=== PATIENT | female | born 2000 | race Caucasian/White ===

== ENCOUNTER 2020-02-06 12:47 | Outpatient (CLI) | payer OTHER, SELFPAY ==
--- NOTE | ~2020-02-06 | US_ITS ---
EXAMINATION: US OB <=14 wk fetus w TV DATE: 02/06/2020 13:31 INDICATION: First trimester viability assessment TECHNIQUE: Real-time pelvic transabdominal and transvaginal ultrasound was performed. COMPARISON: None. FINDINGS: The uterus measures 11.2 x 6.0 x 9.0 cm. There is an intrauterine gestational sac. A yolk sac is identified. heart motion is identified measuring 169 beats per minute (bpm) by M-mode Do ppler. The crown rump length measures 4.2 cm , which correlates with an estimated gestational a ge of 11 weeks and 1 day(s) (+/-) 7 day(s). The right ovary measures 3.3 x 2.1 x 2.6 cm. The left ovary measures 3.7 x 2.7 x 2.5 cm. There is nor mal vascular flow in the ovaries. There is no free fluid in the pelvis. IMPRESSION: 1. Live intrauterine with an estimated gestational age of 11 weeks and 1 day(s) (+/-) 7 day (s) and an estimated delivery date of 08/26/2020. Reviewed, dictated and finalized at location A. IMPRESSION: 1. Live intrauterine with an estimated gestational age of 11 weeks an d 1 day(s) (+/-) 7 day(s) and an estimated delivery date of 08/26/2020.
== END 2020-02-06 12:48 | disposition home or self-care (01) ==
PROVIDERS: Visit Provider Obstetrics & Gynecology
DX: Z34.90 Encounter for supervision of normal pregnancy, unspecified, unspecified trimester (principal); Z3A.11 11 weeks gestation of pregnancy
CPT/HCPCS: 76801; 76817

== ENCOUNTER 2020-02-20 15:43 | Outpatient (CLI) | payer OTHER, SELFPAY ==
[2020-02-20 16:19] LABS: Basophils Percent Auto 0.3 % (0.2-1.2); Eosinophils Absolute Auto 0.1 K/mm3 (0-0.3); Eosinophils Percent Auto 0.9 % (0-4.4); Hematocrit 35.1 % (37.0-47.0); Hemoglobin 11.8 g/dL (12.0-15.0); Immature Granulocyte Absolute 0.03 K/mm3 (0.00-0.031); Immature Granulocyte Percent A 0.3 % (0-0.5); Lymphocytes Percent Auto 18.1 % (18.3-44.2); Mean Corpuscular HGB Conc 33.6 g/dl (32-36); Mean Corpuscular Hemoglobin 30.2 pg (26-34); Mean Corpuscular Volume 89.8 fl (80-100); Mean Platelet Volume 10.6 fl (7.4-10.4); Monocytes Absolute Auto 0.4 K/mm3 (0.1-0.6); Monocytes Percent Auto 4.5 % (2.6-8.5); Neutrophils Absolute Auto 7.1 K/mm3 (1.3-6.7); Neutrophils Percent Auto 75.9 % (45.5-73.1); Platelet Count Result 292 k/mm3 (150-375); Red Blood Count 3.91 M/mm3 (4.2-5.4); Red Cell Distribution Width 13.1 % (11.5-14.5); White Blood Count 9.4 K/mm3 (4.5-10.0)
[2020-02-20 16:26] LABS: Add Urine Microscopic? YES; Appearance Urine Clear (Clear); Bacteria Urine Trace /hpf; Bilirubin Urine Negative (Negative); Blood Urine 1+ (Negative); Color Urine Yellow (Yellow); Glucose Urine UA Negative (Negative); Ketones Urine Negative (Negative); Leukocyte Esterase Ur 2+ LEU/UL (NEGATIVE); Mucus Urine Heavy /lpf; Nitrate Urine Negative (Negative); Protein Urine 1+ mg/dL (Negative); Specific Grav Ur 1.025 (1.001-1.035); Squamous Epithelial Cell Urine Many /hpf (Few); Urobilinogen Urine Negative mg/dL (<2.0)
[2020-02-20 17:25] LABS: Thyroid Stimulating Hormone 0.522 uIU/mL (0.465-4.680)
[2020-02-20 18:40] LABS: Hepatitis B Surface Antigen Negative (Negative); Rubella IgG Antibody 14.6 IU/ML
[2020-02-20 18:54] LABS: Hepatitis C Virus Antibody Negative (Negative)
[2020-02-23 08:58] LABS: Rapid Plasma Reagin Non-Reactive (NonReactive)
[2020-02-27 11:38] LABS: Hematocrit 36.5 % (35.0-45.0); MCH 30.2 pg (27.0-33.0); MCV 92.4 FL (80.0-100.0); RDW 14.2 % (11.0-15.0); Red Blood Cell Count 3.95 Mill/uL (3.80-5.10)
== END 2020-02-20 15:44 | disposition home or self-care (01) ==
PROVIDERS: Visit Provider Obstetrics & Gynecology
DX: Z34.00 Encounter for supervision of normal first pregnancy, unspecified trimester (principal)
CPT/HCPCS: 36415; 81001; 83021; 84443; 85025; 86592; 86762; 86787; 86803; 86850; 86900; 86901; 87086; 87088; 87340

== ENCOUNTER 2020-03-12 09:11 | Outpatient (CLI) | payer OTHER, SELFPAY ==
[2020-03-12 10:12] LABS: Vitamin D 25 Hydroxy 29.7 ng/mL
[2020-03-12 10:23] LABS: HIV 1/2 Ab P24 Ag Result Negative (Negative)
== END 2020-03-12 09:12 | disposition home or self-care (01) ==
LOC: ANHLAB 09:12
PROVIDERS: Visit Provider Obstetrics & Gynecology
DX: Z34.90 Encounter for supervision of normal pregnancy, unspecified, unspecified trimester (principal); Z3A.00 Weeks of gestation of pregnancy not specified
CPT/HCPCS: 36415; 82306; 86703; G0432

== ENCOUNTER → 2020-03-25 10:53 | Outpatient (CLI) | payer OTHER, SELFPAY ==
--- NOTE | ~2020-03-25 | US_ITS ---
EXAMINATION: US OB /maternal detail DATE: 03/25/2020 11:30 INDICATION: Second trimester anatomic survey TECHNIQUE: Real-time ultrasound of the pelvis was performed. COMPARISON: None. FINDINGS: There is a single living fetus in variable presentation. The placenta is anterior and 7.4 cm from the internal cervical os. heart rate is 137 beats per minute (bpm). cardiac activity and fe columba movement are noted. The amniotic fluid index is subjectively normal. The following anatomy was identified as normal: 4 chamber heart 3 vessel cord cord insertion kidneys urinary bladder stomach spine diaphragm ventricles cisterna magna cerebellum The following biometric data were obtained: Biparietal diameter (BPD): 4.1 cm; head circumference (HC): 15.4 cm; abdominal circumference (AC): 13 .0 cm; femur length (FL): 2.5 cm. These measurements are concordant. Estimated weight is 228 g +/- 34 g, which correlates with the 58th percentile when 08/26/2020 is used as estimated date of delivery. As single measurements, these parameters are each equal to the following estimated gestational ages w ith ranges of +/- 2 standard deviations: BPD: 18 weeks 4 days ( 16 weeks 6 days - 20 weeks 3 days). HC: 18 weeks 3 days ( 16 weeks 6 days - 19 weeks 6 days). AC: 18 weeks 4 days ( 16 weeks 4 days - 20 weeks 4 days). FL: 17 weeks 5 days ( 16 weeks 2 days - 19 weeks 1 days). estimated gestational age based solely on measurements from this exam is 18 weeks 2 days +/- 1 weeks 2 days. IMPRESSION: 1. Single living fetus in variable presentation. 2. Estimated weight is 228 g +/- 34 g, which correlates with the 58th percentile when 08/26/2020 is used as estimated date of delivery. Reviewed, dictated and finalized at location A. IMPRESSION: 1. Single living fetus in variable presentation. 2. Estimated weight is 228 g +/- 34 g, which correlates with the 58th per centile when 08/26/2020 is used as estimated date of delivery.
== END ==
PROVIDERS: Visit Provider Obstetrics & Gynecology
DX: Z36.9 Encounter for antenatal screening, unspecified (principal); Z3A.18 18 weeks gestation of pregnancy
CPT/HCPCS: 76805

== ENCOUNTER 2020-05-21 14:39 | Outpatient (CLI) | payer OTHER, SELFPAY ==
[2020-05-21 16:08] LABS: Basophils Percent Auto 0.3 % (0.2-1.2); Eosinophils Absolute Auto 0.1 K/mm3 (0-0.3); Eosinophils Percent Auto 0.7 % (0-4.4); Hematocrit 31.4 % (37.0-47.0); Hemoglobin 10.5 g/dL (12.0-15.0); Immature Granulocyte Absolute 0.12 K/mm3 (0.00-0.031); Lymphocytes Absolute Auto 1.71 K/mm3 (0.9-3.2); Lymphocytes Percent Auto 14.8 % (18.3-44.2); Mean Corpuscular HGB Conc 33.4 g/dl (32-36); Mean Corpuscular Hemoglobin 30.9 pg (26-34); Mean Corpuscular Volume 92.4 fl (80-100); Mean Platelet Volume 10.4 fl (7.4-10.4); Monocytes Absolute Auto 0.7 K/mm3 (0.1-0.6); Monocytes Percent Auto 6.3 % (2.6-8.5); Neutrophils Absolute Auto 8.9 K/mm3 (1.3-6.7); Neutrophils Percent Auto 76.9 % (45.5-73.1); Platelet Count Result 297 k/mm3 (150-375); Red Cell Distribution Width 13.4 % (11.5-14.5); White Blood Count 11.6 K/mm3 (4.5-10.0)
[2020-05-21 16:23] LABS: Glucose 1 Hour PP 50gm Dose 96 mg/dL
== END 2020-05-21 14:40 | disposition home or self-care (01) ==
PROVIDERS: Visit Provider Obstetrics & Gynecology
DX: Z34.92 Encounter for supervision of normal pregnancy, unspecified, second trimester (principal); Z3A.25 25 weeks gestation of pregnancy
CPT/HCPCS: 36415; 82947; 85025

== ENCOUNTER 2020-07-06 15:18 | Outpatient (CLI) | payer OTHER, SELFPAY ==
[2020-07-06 15:55] LABS: Basophils Percent Auto 0.3 % (0.2-1.2); Eosinophils Absolute Auto 0.1 K/mm3 (0-0.3); Eosinophils Percent Auto 0.7 % (0-4.4); Hematocrit 31.9 % (37.0-47.0); Hemoglobin 10.5 g/dL (12.0-15.0); Immature Granulocyte Percent A 1.8 % (0-0.5); Lymphocytes Absolute Auto 1.83 K/mm3 (0.9-3.2); Lymphocytes Percent Auto 16.9 % (18.3-44.2); Mean Corpuscular HGB Conc 32.9 g/dl (32-36); Mean Corpuscular Hemoglobin 30.6 pg (26-34); Mean Platelet Volume 10.7 fl (7.4-10.4); Monocytes Absolute Auto 0.8 K/mm3 (0.1-0.6); Monocytes Percent Auto 7.1 % (2.6-8.5); Neutrophils Absolute Auto 7.9 K/mm3 (1.3-6.7); Neutrophils Percent Auto 73.2 % (45.5-73.1); Platelet Count Result 292 k/mm3 (150-375); Red Blood Count 3.43 M/mm3 (4.2-5.4); Red Cell Distribution Width 13.9 % (11.5-14.5); White Blood Count 10.8 K/mm3 (4.5-10.0)
[2020-07-06 16:48] LABS: HIV 1/2 Ab P24 Ag Result Negative (Negative)
[2020-07-06 17:18] LABS: Vitamin D 25 Hydroxy 30.2 ng/mL
[2020-07-07 11:06] LABS: Rapid Plasma Reagin Non-Reactive (NonReactive)
== END 2020-07-06 15:19 | disposition home or self-care (01) ==
LOC: ANHLAB 15:20
PROVIDERS: Visit Provider Obstetrics & Gynecology
DX: Z34.90 Encounter for supervision of normal pregnancy, unspecified, unspecified trimester (principal)
CPT/HCPCS: 36415; 82306; 85025; 86592; 86703; G0432

== ENCOUNTER → 2020-07-15 12:52 | Outpatient (CLI) | payer OTHER, SELFPAY ==
--- NOTE | ~2020-07-15 | US_ITS ---
EXAMINATION: US OB follow up DATE: 07/15/2020 13:12 INDICATION: Encounter for other specified screening during third trimester of . TECHNIQUE: Real-time ultrasound of the pelvis was performed. The interpreting radiologist was not pre sent for the study. COMPARISON: 03/25/2020 FINDINGS: There is a single living fetus in vertex presentation. The placenta is anterior and not low-lying. F etal heart rate is 135 beats per minute (bpm). The amniotic fluid index is 8.1 cm, which is normal ( 5th%-95%: 8.1-21.8 cm at 34 weeks estimated gestational age). The following biometric data were obtained: BPD: 8.6 cm -> 34 weeks 4 days Head circumference: 31.9 cm -> 35 weeks 6 days Abdominal circumference: 30.6 cm -> 34 weeks 4 days Femur length: 6.9 cm -> 35 weeks 4 days These measurements are concordant. Head circumference to abdominal circumference ratio: 1.04 (normal range 0.93-1.11). Estimated weight: 2558 g (+/-) 384 g. or 5 lbs. 10 oz. (+/-) 14 oz. IMPRESSION: 1. Single living fetus in vertex presentation with heart rate of 135 bpm. 2. Normal amniotic fluid index of 21.8 cm. 3. Estimated weight is 73rd percentile by Hadlock criteria when 08/26/2020 is used as the estima radha date of delivery (MICAELA). Please correlate with clinical information or earlier ultrasounds for mos t accurate MICAELA. Reviewed, dictated and finalized at location B. TESTER IMPRESSION: 1. Single living fetus in vertex presentation with heart rate of 135 bpm. 2. Normal amniotic fluid index of 21.8 cm. 3. Estimated weight is 73rd percentile by Hadlock criteria when 08/26/2020 is used as the estimated date of delivery (MICAELA). Please correlate with clinica l information or earlier ultrasounds for most accurate MICAELA.
== END ==
PROVIDERS: Visit Provider Obstetrics & Gynecology
DX: Z34.93 Encounter for supervision of normal pregnancy, unspecified, third trimester (principal); Z3A.35 35 weeks gestation of pregnancy
CPT/HCPCS: 76816

== ENCOUNTER 2020-08-14 11:32 | Outpatient (CLI) | payer OTHER, SELFPAY ==
[2020-08-14 12:30] VITALS: TEMP 36.6
== END 2020-08-14 13:29 | disposition home or self-care (01) ==
LOC: ANHOBOP 13:07 → ANHLDR 13:08
PROVIDERS: Visit Provider Obstetrics & Gynecology
DX: O41.8X30 Other specified disorders of amniotic fluid and membranes, third trimester, not applicable or unspecified (principal); Z3A.28 28 weeks gestation of pregnancy
CPT/HCPCS: 84112; 99199

== ENCOUNTER 2020-08-15 05:27 | Inpatient (IN) | payer OTHER, SELFPAY ==
[2020-08-15] VITALS (211 sets, daily range): BP systolic 83–138; BP diastolic 48–90; PULSE 85–165; RESP 16–20; TEMP 36.4–39.1; O2SAT 97–100; BMI 38.4
--- NOTE | 2020-08-15 05:27 | LDADM ---
This patient, Chyna Veloz, was admitted to Labor/Delivery/Recovery 105 on 08/15/20 at 05:27. Plans for labor, pain management and were discussed with patient. Patient/family oriented to hospital policies and general routines including ID bracelet, bed and alarms, visiting hours, pain management, procedures, bathroom and other care routines, personal items, smoking policy, room service/diet and guest tray routines, security routines, and visiting hours. Patient/Family are encouraged to report perceived risks to care and to ask questions if they do not understand what they are told or what they should do. See OBIX for further documentation.
[2020-08-15 06:08] LABS: Basophils Percent Auto 0.2 % (0.2-1.2); Eosinophils Percent Auto 0.1 % (0-4.4); Hematocrit 32.8 % (37.0-47.0); Immature Granulocyte Absolute 0.19 K/mm3 (0.00-0.031); Immature Granulocyte Percent A 1.2 % (0-0.5); Lymphocytes Absolute Auto 1.42 K/mm3 (0.9-3.2); Lymphocytes Percent Auto 8.8 % (18.3-44.2); Mean Corpuscular HGB Conc 33.5 g/dl (32-36); Mean Corpuscular Hemoglobin 30.6 pg (26-34); Mean Corpuscular Volume 91.1 fl (80-100); Mean Platelet Volume 10.5 fl (7.4-10.4); Monocytes Absolute Auto 1.6 K/mm3 (0.1-0.6); Neutrophils Absolute Auto 12.9 K/mm3 (1.3-6.7); Neutrophils Percent Auto 79.7 % (45.5-73.1); Platelet Count Result 247 k/mm3 (150-375); White Blood Count 16.2 K/mm3 (4.5-10.0)
[2020-08-15] MEDS: LACTATED RINGERS 1,000 ML 125 ML IV CONT ×4 (06:20→17:34)
--- NOTE | 2020-08-15 07:38 | WPDANESEPP ---
Anes - Eval Pre Procedure Procedure: Labor Epidural Date/Time: 08/15/20 07:38 Surgeon: Lex Preop Diagnosis: Labor Pain Pre Op Diagnosis: Leaking Patient Data Age: 20 Gender: F Height: 5 ft 1 in Weight: 92.2 kg Last Vital Signs Temp 37.0 C 08/15/20 07:27 Pulse 105 H 08/15/20 07:35 Resp 20 08/15/20 05:37 BP 119/73 08/15/20 07:35 Pulse Ox 99 08/15/20 07:34 Allergies Allergy/AdvReac Type Severity Reaction Status Date / Time amoxicillin Allergy Mild Rash Verified 08/14/20 12:46 Home Medications Medication Instructions Recorded Confirmed Type prenat.vits,magy,did-bomy-tsrnf 1 tablet PO DAILY 01/29/20 08/15/20 History ferrous sulfate 325 mg (65 mg 325 mg PO BID #60 tablet 05/25/20 08/15/20 Rx iron) tablet cholecalciferol (vitamin D3) 25 mcg PO DAILY 08/14/20 08/15/20 History [Vitamin D3] Laboratory Tests 08/15/20 08/15/20 08/15/20 06:02 06:02 06:02 WBC 16.2 K/mm3 H K/mm3 (4.5-10.0) RBC 3.60 M/mm3 L M/mm3 (4.2-5.4) Hgb 11.0 g/dL L g/dL (12.0-15.0) Hct 32.8 % L % (37.0-47.0) MCV 91.1 fl fl (80-100) MCH 30.6 pg pg (26-34) MCHC 33.5 g/dl g/dl (32-36) RDW 14.0 % % (11.5-14.5) Plt Count 247 k/mm3 k/mm3 (150-375) MPV 10.5 fl H fl (7.4-10.4) Immature Gran % (Auto) 1.2 % H % (0-0.5) Neut % (Auto) 79.7 % H % (45.5-73.1) Lymph % (Auto) 8.8 % L % (18.3-44.2) Garza % (Auto) 10.0 % H % (2.6-8.5) Eos % (Auto) 0.1 % % (0-4.4) Baso % (Auto) 0.2 % % (0.2-1.2) Lymph # (Auto) 1.42 K/mm3 K/mm3 (0.9-3.2) Garza # (Auto) 1.6 K/mm3 H K/mm3 (0.1-0.6) Eos # (Auto) 0.0 K/mm3 K/mm3 (0-0.3) Baso # (Auto) 0.0 K/mm3 K/mm3 (0.0-0.1) Abs Immat Gran (auto) 0.19 K/mm3 H K/mm3 (0.00-0.031) Absolute Neuts (auto) 12.9 K/mm3 H K/mm3 (1.3-6.7) Absolute Nucleated RBC 0.0 K/mm3 K/mm3 (0.0-0.012) Nucleated RBC % 0.0 % % (0.0-0.2) RPR Pending Blood Type O Positive Antibody Screen Negative : gestational age (, MICAELA 08/26/20) Patient hx anesthesia problems: none Family hx anesthesia problems: none PMFSH Past Medical History Medical History Migraines Pilonidal cyst Family History Family History Grandparent Diabetes mellitus Heart disease Acute myocardial infarction Cerebrovascular accident Social History Social History Smoking status: Never smoker Second hand tobacco smoke exposure: No Alcohol intake: never Substance use: never Spiritual care concerns: No Exam Day of Procedure 08/15/20 07:38 Patient weight: obese Heart: regular rate and rhythm Lungs: normal air movement Airway: Mallampati scale class II Neurological: alert and oriented
[2020-08-15] MEDS: OXYTOCIN 30 UNITS/NS 500 ML 30 UNITS/500 ML BAG IV CONT (10:20)
[2020-08-15] MEDS: CLINDAMYCIN 600 MG/NS 50 ML 600 MG/50 ML PIGGYBACK 100 MG IVPB (16:25)
--- NOTE | 2020-08-15 18:36 | PM.OBPRVD ---
OB - Delivery Note Procedure Delivery date: 08/15/20 Intrapartal events: Febrile Delivery augmentation: pitocin Delivery monitor: external FHT and internal uterine Route of delivery: Laceration Description: Perineal - 1st Degree Delivery repair: vicryl (3-0 (one stitch)) Specimen: No Quantitative Blood Loss (ml): 132 Anesthesia type: Epidural Disposition: floor Baby Date of : 08/15/20 Time of : 18:09 Weeks of gestation at delivery: 38 gender: Male Weight (pounds): 7 Weight (ounces): 4 presentation: vertex position: Right Occiput Anterior Placenta delivery description: Spontaneous cord vessel description: 3 Vessels, Nuchal Cord, Loose, Reduced and Clamped/Cut score one minute: 8 score five minutes: 9
--- NOTE | 2020-08-15 18:40 | WPDOBADMIT ---
Obstetrics - Admit Note Admission Note: record reviewed. No pertinent additions to the history and/or any subsequent changes in the physical findings that are not consistent with the expected course of the were found. Additions to the history and/or subsequent changes in the physical findings follow. G1 at 38+3 came in early am 08/15 with c/o leaking fluid and was found to have SROM Cervix 2 cm at that time. GBS negative. Plan to observe for labor, augment if needed, and anticipate .
[2020-08-15] MEDS: OXYTOCIN 30 UNITS/NS 500 ML 30 UNITS/500 ML BAG 125 UNITS IV CONT (19:02)
[2020-08-15] MEDS: BENZOCAINE 20% AER SPR (*SP) 56 GM CAN 1 SPRAY TOPICAL (20:19)
[2020-08-15] MEDS: WITCH HAZEL 40 PADS 1 PAD TOPICAL (20:19)
--- NOTE | 2020-08-15 20:42 | OBPPTRN ---
Patient transferred to post room #282 via wheelchair. Support person present. Oriented to unit, room, information board, rooming in, admission packet and security measures. Patient verbalizes understanding.
[2020-08-15] MEDS: IBUPROFEN 600 MG TABLET PO (21:11)
[2020-08-15] MEDS: DOCUSATE SODIUM 100 MG CAPSULE PO (22:13)
[2020-08-16] VITALS: BP 108/60; PULSE 96; RESP 16; TEMP 36.7; O2SAT 99
[2020-08-16 04:00] VITALS: BP 102/57; PULSE 88; RESP 16; TEMP 36.2; O2SAT 98
[2020-08-16 04:29] LABS: Hemoglobin 10.3 g/dL (12.0-15.0)
[2020-08-16 08:00] VITALS: BP 95/65; PULSE 86; RESP 18; TEMP 36.2; O2SAT 98
[2020-08-16] MEDS: IBUPROFEN 600 MG TABLET PO ×2 (08:07→17:00)
[2020-08-16] MEDS: DOCUSATE SODIUM 100 MG CAPSULE PO ×2 (08:08→17:00)
[2020-08-16] MEDS: MULTIVIT/MIN/PREN/FOL AC/IRON TABLET 1 TAB PO (08:08)
--- NOTE | 2020-08-16 09:01 | PM.OBPNVD ---
OB - PN: Subj Subjective Date/time seen: 08/16/20 09:01 Patient doing well. Denies significant pain. Also denies any headache, chest pain, SOB, N/V. Minimal lochia. Baby well. . OB - PN: Obj Data Labs CBC & Chem 7: 08/16/20 04:02 Labs: Laboratory Results - last 24 hr 08/16/20 04:02 Hgb 10.3 L Hct 31.0 L OB - PN A/P Assessment and Plan (1) Normal spontaneous vaginal delivery: Code(s): O80 - Encounter for full-term uncomplicated delivery Status: Acute Assessment and Plan: PPD#1 doing well continue routine care anticipate dc home tomorrow Time Spent With Patient Time: Total time spent is greater than 50% in coordination of care (as documented) at patient's floor/unit and/or counseling patient: Exam Const: General: cooperative, healthy appearing, comfortable and no acute distress GI: GI Palp: Yes Soft to palpation and No Tenderness to palpation present (GI) Other: fundus firm below umbilicus Extrem: Right lower extremity: edema Details: 1+ Left lower extremity: edema Details: 1+ Other: no calf tenderness
--- NOTE | 2020-08-16 09:39 | WPDANLDPN2 ---
Anes-Prog Note L&D Date/Time: 08/16/20 09:39 Comfortable throughout: labor and delivery Neuraxial method: epidural Epidural/Spinal procedure site: clean & non-tender Neuro status: Neuro function grossly intact. Cardiovascular status: normal Respiratory status: normal Airway patency: baseline Mental status: baseline Post-Op hydration status: normal Vital Signs: Last Vital Signs Temp 36.2 C L 08/16/20 08:00 Pulse 86 08/16/20 08:00 Resp 18 08/16/20 08:00 BP 95/65 L 08/16/20 08:00 Pulse Ox 98 08/16/20 08:00 Pain score (VAS): 0/10. Patient up at bedside, appears comfortable. I/O: Intake & Output 08/15/20 08/16/20 08/16/20 23:59 07:59 15:59 Intake Total 2275 Output Total 184 Balance 2091 Post-procedural complaints: none Patient feedback: Patient satisfied with anesthetic care.
[2020-08-16 09:55] LABS: Rapid Plasma Reagin Non-Reactive (NonReactive)
[2020-08-16 12:00] VITALS: BP 97/69; PULSE 80; RESP 18; TEMP 36.6; O2SAT 98
--- NOTE | 2020-08-16 14:15 | PC.NURSE ---
Mother called out for assist with feeding, attempting to breast upon entering. Mother reports has been latching within a few attempts and denies discomfort. Reviewed infant feeding cues, frequencies, duration of feedings, feeding elimination flow sheet, and signs of adequate intake. Demonstrated stimulation techniques to wake for feeding. Assisted with to breast. Reviewed positioning/alignment in cross cradle, holding breast in U hold and asymmetrical latch on. was able to latch correctly. Infant nursed eagerly, with steady draws and occasional swallowing noted. Reviewed signs of a correct latch, effective nursing and suck swallow ratio. Infant was able to maintain latch without discomfort to mother. Nipple care reviewed. Advised to stimulate infant while feeding to increase stimulation to mother and for increased intake for infant. Instructed mother to call out for RN assistance if she is unable to latch infant for feeding or she has discomfort with nursing. Instructed feeding should be initiated three hours from start of last feeding or if feeding cues are noted before. Mother voiced understanding of information shared.
[2020-08-16 16:00] VITALS: BP 100/71; PULSE 80; PULSE 84; RESP 18; RESP 20; TEMP 36.8; O2SAT 98
[2020-08-16] MEDS: LANOLIN (LANSINOH) 7.5 GM CREAM 1 APPLIC TOPICAL (17:00)
[2020-08-16] MEDS: WITCH HAZEL 40 PADS 1 PAD TOPICAL (17:00)
[2020-08-16] MEDS: BENZOCAINE 20% AER SPR (*SP) 56 GM CAN 1 SPRAY TOPICAL (17:00)
[2020-08-16 20:00] VITALS: BP 107/71; PULSE 96; RESP 18; TEMP 36.4; O2SAT 99
[2020-08-17] MEDS: WITCH HAZEL 40 PADS 1 PAD TOPICAL (07:13)
[2020-08-17] MEDS: IBUPROFEN 600 MG TABLET PO (07:13)
[2020-08-17] MEDS: BENZOCAINE 20% AER SPR (*SP) 56 GM CAN 1 SPRAY TOPICAL (07:13)
[2020-08-17] MEDS: MULTIVIT/MIN/PREN/FOL AC/IRON TABLET 1 TAB PO (07:14)
[2020-08-17] MEDS: DOCUSATE SODIUM 100 MG CAPSULE PO (07:14)
--- NOTE | 2020-08-17 07:45 | PC.NURSE ---
Upon entering mother has at breast, infant is latched correctly nursing with long rhythmical draws with appropriate positioning/alignment for cross cradle. Mother denies discomfort with feeding, reporting has been feeding frequently during the night. Assured mother this is normal and cluster feeding may continue in burst for the next few days. Infant has had several effective feedings in the past 24 hours, and is currently meeting outcomes for weight, output, jaundice and feeding frequencies. Mother states she feels confident to continue effective at home. Reviewed transition to breast milk, signs of adequate intake, and engorgement/relief. Instructed to call ICP if intake/output less than required. Reviewed regular medications mother is taking. Information provided per Monica. Reviewed community resources on the [facility] website and in the Mom/Baby guide. Information on outpatient services provided. Mother has no further questions at this time.
[2020-08-17 08:00] VITALS: BP 112/64; PULSE 107; RESP 16; TEMP 36.8
--- NOTE | 2020-08-17 09:32 | PM.OBPNVD ---
OB - PN: Subj Subjective Date/time seen: 08/17/20 09:32 Patient doing well this morning. Denies any significant abdominal pain. Reports mild cramping. Denies any heavy vaginal bleeding. Denies any headache, chest pain, shortness of breath, nausea, or vomiting. Baby well. OB - PN: Obj Data Labs CBC & Chem 7: 08/16/20 04:02 Labs: Laboratory Results - last 24 hr 08/15/20 06:02 RPR Non-reactive OB - PN A/P Assessment and Plan (1) Normal spontaneous vaginal delivery: Code(s): O80 - Encounter for full-term uncomplicated delivery Status: Acute Assessment and Plan: PPD#2 doing well continue routine care discharge home in stable condition emergency precautions reviewed Time Spent With Patient Time: Total time spent is greater than 50% in coordination of care (as documented) at patient's floor/unit and/or counseling patient: Exam Const: General: cooperative, healthy appearing, comfortable and no acute distress GI: GI Palp: Yes Soft to palpation and No Tenderness to palpation present (GI) Other: fundus firm below umbilicus Extrem: Right lower extremity: edema Details: 1+ Left lower extremity: edema Details: 1+ Other: no calf tenderness
--- NOTE | 2020-08-17 09:34 | PM.DS ---
DS: Admitting Diagnosis Admitting Diagnosis Admitting Diagnosis: Labor DS: Summary Hospital Course Hospital Course: Uncomplicated Time Spent with Patient Time attestation: Total time spent providing and/or coordinating discharge services: DS: Data Data Completed and Pending Labs on day of discharge: Labs from last 24 hours 08/15/20 06:02 RPR Non-reactive Discharge Plan Discharge Attending physician on discharge: Miranda Sheldon Discharging Clinician: Miranda Sheldon Anticipated Discharge Date/Time: 08/17/20 09:34 Patient Disposition: Home, Self-Care Activity: may shower and pelvic rest Diet: regular Discharge Instructions: Call office ([phone]) to schedule a visit in 4-6 weeks. You may take Ibuprofen 600mg every 6 hours as needed for pain. Pain medication may make you constipated. It may be helpful to take an [id number]-[id number] stool softener, such as Colace and/or Senokot, along with the pain medication to help lessen constipation. Call office or go to ED for pain not controlled with medication, headache, chest pain, shortness of breath, fever, chills, persistent nausea or vomiting, severe abdominal pain, heavy vaginal bleeding >2 pads/hour, foul vaginal discharge or odor, or problems with your breasts. Education: Mom and Baby Guide Given to: Mother Follow-Up: Call your delivering provider's office for an appointment to be seen in: 4 Weeks Mom and baby should come to the [facility] for the follow-up appointment. Appointment Date/Time:Tuesday, August 18, 2020 at 10:00 am What to expect at your follow-up visit: Blood Pressure Check Physical Assessment Call [phone] if you are unable to keep your appointment time. BREAST CARE: * Wear a snug supportive bra. * For engorgement discomfort: Breast Feeding: * Apply warm moist washcloths * Express milk as needed to relieve engorgement * Wear loose clothing For sore nipples: * Identify correct latch-on * Apply warm moist washcloths before and after nursing * Air dry nipples after nursing * May apply Lansinoh cream to nipples EPISIOTOMY/PERINEAL CARE: * Until bleeding stops, use your nayely bottle after urinating * Change your pad frequently throughout the day * You may take sitz baths several times a day (fill your bathtub with warm water and soak for 20 minutes.) Do NOT bathe in the water * No tub baths until seen by your physician - You may shower ACTIVITY: * Rest as much as possible. * Do not exercise or lift anything heavier than your baby (such as laundry or other children.) * Avoid stairs or driving as much as possible. * Do not put anything into the vagina. No douching, tampons, or sexual activity until seen by physician. NOTIFY PHYSICIAN IF YOU HAVE ANY QUESTIONS OR IF ANY OF THE FOLLOWING SYMPTOMS OCCUR: * If your episiotomy becomes red, swollen, or more painful than what you have experienced in the hospital. * If your vaginal bleeding becomes foul smelling. * If your vaginal bleeding becomes more heavy than a period or if your bleeding changes from pink to bright red. However, you may pass an occasional walnut-sized clot once or twice for the first week . * If you experience a sharp, shooting pain in you calves. * If you discover a hard, reddened area on your breast or if you experience flu-like symptoms. DIET: * Eat regular, well-balanced meals. * Drink plenty of fluids daily. If , drink to thirst. Patient Instructions: Antibiotic Form Stand Alone Forms: General Discharge Information Follow-up/Referrals: Karlene Burnett MD [Physician] - Discharge Medications: Continued prenat.vits,magy,[id number]-[id number] Tablet 1 tablet PO DAILY RF: 0 Discontinued cholecalciferol (vitamin D3) [Vitamin D3] 25 mcg (1,000 unit) Tablet 25 mcg PO DAILY RF: 0 ferrous
--- NOTE | 2020-08-17 10:11 | PC.NURSE ---
Patient viewed the discharge video Mother & Baby Care, The First Two Weeks . Patient was given the opportunity and encouraged to ask questions. Patient verbalized understanding of information shared and has been given the mother/baby guide for home reference.
[2020-08-18 10:00] VITALS: BP 121/76; PULSE 88; RESP 16; TEMP 36.9; O2SAT 98
== END 2020-08-17 11:05 | disposition home or self-care (01) | DRG 806 ==
LOC: ANHLDR 05:58 → ANHOB2 08-16 13:13 → ANHLDR 08-18 11:01 → ANHOB2 08-18 11:01
PROVIDERS: Admitting Provider Obstetrics & Gynecology; Visit Provider Student in an Organized Health Care Education/Training Program
DX: O69.81X0 Labor and delivery complicated by cord around neck, without compression, not applicable or unspecified (principal); O75.2 Pyrexia during labor, not elsewhere classified; Z37.0 Single live birth; Z3A.38 38 weeks gestation of pregnancy; O70.0 First degree perineal laceration during delivery; O99.214 Obesity complicating childbirth; E66.9 Obesity, unspecified
CPT/HCPCS: 36415; 84112; 85014; 85018; 85025; 86592; 86850; 86900; 86901; A9270; J0131; J2590; J2795; J7120

== ENCOUNTER 2021-06-08 12:12 | Emergency (ER) | payer OTHER, SELFPAY ==
[2021-06-08 12:23] VITALS: BP 126/87; PULSE 87; RESP 16; TEMP 36.6; O2SAT 100
--- NOTE | 2021-06-08 12:50 | ED.URI ---
HPI - URI/Sore Throat General Chief Complaint: Upper Respiratory Infection Stated Complaint: sore throat Time Seen by Provider: 06/08/21 12:37 Source: patient and RN notes reviewed Mode of arrival: ambulatory Limitations: no limitations History of Present Illness HPI Narrative: Patient presents today complaining of 4-day history of sore throat, postnasal drip, cough. She vomited one time yesterday as well. Denies fever, headache, ear pain, diarrhea, nasal congestion. She has been taking DayQuil and Mucinex DM with some mild relief. She currently rates her pain 4/10. She has been vaccinated against COVID-19. MD elicited complaint: cough and sore throat Related Data Home Medications Medication Instructions Recorded Confirmed No Home Medications 06/08/21 06/08/21 Allergies Allergy/AdvReac Type Severity Reaction Status Date / Time amoxicillin Allergy Mild Rash Verified 09/24/20 10:10 Review of Systems Review of Systems: CONSTITUTIONAL: Denies body aches, fever, chills, or sweats. EYES: Denies visual changes, redness, or discharge. ENT: Denies rhinorrhea, congestion, or otalgia.+ Sore throat, postnasal drip CARDIOVASCULAR: Denies chest pain, palpitations, or edema. RESPIRATORY: Denies dyspnea.+ Cough GASTROINTESTINAL: Denies abdominal pain, nausea, or diarrhea.+ Vomiting GENITOURINARY: Denies dysuria or hematuria. SKIN: Denies rash, itching, or wounds. MUSCULOSKELETAL: Denies back pain, joint pain, or myalgia. NEUROLOGIC: Denies headache, numbness, tingling, or weakness. PSYCH: Denies depression or anxiety. [facility] Past Medical History Medical History Migraines Normal spontaneous vaginal delivery Pilonidal cyst Family History Family History Grandparent Diabetes mellitus Heart disease Acute myocardial infarction Cerebrovascular accident Social History Social History Smoking status: Never smoker Second hand tobacco smoke exposure: No Alcohol intake: never Substance use: never Spiritual care concerns: No Comments At time of signature, I have reviewed and agree with nursing past medical, surgical, social and family history unless otherwise noted. Please see nursing chart for further information. There is no relevant family history pertinent to the presenting complaint Exam Narrative: GENERAL: Well-appearing, well-nourished, and in no acute distress. HEAD: Normocephalic, atraumatic. EYES: EOMI. No redness or drainage. Conjunctivae normal. ENT: Mucous membranes pink and moist. Nares mildly congested. No rhinorrhea. TMs normal bilaterally. Throat normal. Uvula midline. NECK: Normal AROM. Supple. No lymphadenopathy. CHEST: No respiratory distress. Clear to auscultation. HEART: Regular rate and rhythm. No murmur appreciated. Normal peripheral pulses. EXTREMITIES: Normal range of motion. No edema. SKIN: Warm, dry, no rash. Capillary refill normal. Normal skin turgor. NEURO: No focal deficits. Alert and oriented x3. Gait steady. PSYCH: Normal affect. No signs of depression or anxiety. Course Vital Signs Vital signs: Vital Signs Temperature 97.8 F 06/08/21 12:23 Pulse Rate 87 06/08/21 12:23 Respiratory Rate 16 06/08/21 12:23 Blood Pressure 126/87 06/08/21 12:23 Pulse Oximetry 100 06/08/21 12:23 Temperature 97.8 F 06/08/21 12:23 Pulse Rate 87 06/08/21 12:23 Respiratory Rate 16 06/08/21 12:23 Blood Pressure 126/87 06/08/21 12:23 Pulse Oximetry 100 06/08/21 12:23 Reviewed. Pt has been instructed to follow up with her PCP regarding her elevated blood pressure today. MDM - URI/Sore Throat Differential Diagnosis Differential diagnosis: Likely upper respiratory infection, sinusitis, viral infection, pharyngitis and other (Strep throat, COVID-19) Lab Data Attestation: Merlin contreras
== END 2021-06-08 13:13 | disposition home or self-care (01) ==
PROVIDERS: Emergency Provider Nurse Practitioner
DX: U07.1 COVID-19 (principal)
CPT/HCPCS: 87081; 87426; 87880; 99213; C9803; G0463

== ENCOUNTER 2022-11-02 08:26 | Outpatient (CLI) | payer OTHER, SELFPAY ==
--- NOTE | ~2022-11-02 | US_ITS ---
Limited Abdominal Sonogram: Real-time sonographic imaging of the right upper quadrant was performed. Clinical History: Right upper quadrant pain Findings: The liver appears normal in overall echotexture. There is a 5 mm hyperechoic focus in the liver. Main portal vein demonstrates normal direction of flow. 1.2 cm gallstone present. No gallbladd er wall thickening. The common bile duct measures 3 mm. The visualized pancreas, aorta, and IVC are unremarkable. Impression: Cholelithiasis. 5 mm hyperechoic hepatic structure. This probably represents a small hepatic hemangioma. Reviewed, dictated and finalized at location . Impression: Cholelithiasis. 5 mm hyperechoic hepatic structure. This probably represents a small hepatic he mangioma.
--- NOTE | ~2022-11-02 | US_ITS ---
EXAMINATION: US pelvic complete DATE: 11/02/2022 09:04 INDICATION: Pelvic pain Comparison:07/15/2020 TECHNIQUE: Multiple transabdominal and endovaginal sonographic images of the pelvis performed. FINDINGS: The uterus measures 9.3 x 4.4 x 5.8 cm. The endometrial complex measures 9 mm. The right ovary measures 3.2 x 2.3 x 2.6 cm and the left ovary measures 4.2 x 3.8 x 3.7 cm. There is a left ovarian cyst measuring 3.9 cm. There are small follicles in each ovary. Normal doppler signal in both ovaries. There is no free fluid in the pelvis. There are no abnormal masses seen on either side. IMPRESSION: 1. Simple left ovarian cyst measuring 3.9 cm. Reviewed, dictated and finalized at location D.
== END 2022-11-02 08:27 ==
PROVIDERS: PCP Family Medicine; Visit Provider Family Medicine
DX: R10.2 Pelvic and perineal pain (principal); N83.202 Unspecified ovarian cyst, left side; K80.20 Calculus of gallbladder without cholecystitis without obstruction
CPT/HCPCS: 76705; 76856

== ENCOUNTER 2022-11-02 08:57 | Outpatient (CLI) | payer OTHER, SELFPAY ==
[2022-11-02 19:19] LABS: Cholesterol 175 mg/dL (0-200); HDL Direct 43 mg/dL; Triglycerides 95 mg/dL (<150)
[2022-11-02 19:30] LABS: LDL Cholesterol Direct 116 mg/dL
[2022-11-02 19:35] LABS: Basophils Percent Auto 0.4 % (0.2-1.2); Eosinophils Absolute Auto 0.2 K/mm3 (0-0.3); Eosinophils Percent Auto 2.7 % (0-4.4); Hematocrit 36.9 % (37.0-47.0); Hemoglobin 11.9 g/dL (12.0-15.0); Immature Granulocyte Absolute 0.03 K/mm3 (0.00-0.031); Immature Granulocyte Percent A 0.4 % (0-0.5); Lymphocytes Absolute Auto 2.39 K/mm3 (0.9-3.2); Lymphocytes Percent Auto 31.3 % (18.3-44.2); Mean Corpuscular HGB Conc 32.2 g/dl (32-36); Mean Corpuscular Hemoglobin 29.5 pg (26-34); Mean Corpuscular Volume 91.6 fl (80-100); Mean Platelet Volume 10.3 fl (7.4-10.4); Monocytes Absolute Auto 0.6 K/mm3 (0.1-0.6); Monocytes Percent Auto 7.5 % (2.6-8.5); Neutrophils Absolute Auto 4.4 K/mm3 (1.3-6.7); Neutrophils Percent Auto 57.7 % (45.5-73.1); Platelet Count Result 313 k/mm3 (150-375); Red Blood Count 4.03 M/mm3 (4.2-5.4); Red Cell Distribution Width 13.2 % (11.5-14.5); White Blood Count 7.6 K/mm3 (4.5-10.0)
== END 2022-11-02 08:58 | disposition home or self-care (01) ==
LOC: ANHGOSHLAB 08:58
PROVIDERS: PCP Family Medicine; Visit Provider Family Medicine
DX: R10.9 Unspecified abdominal pain (principal); D64.9 Anemia, unspecified
CPT/HCPCS: 36415; 80061; 82728; 84443; 85025

== ENCOUNTER 2023-05-29 13:07 | Outpatient (CLI) | payer OTHER, SELFPAY ==
[2023-05-29 13:44] LABS: Alanine Aminotransferase 20 U/L (6-35); Albumin Level 4.6 g/dL (3.5-5.1); Alkaline Phosphatase 73 U/L (38-126); Amylase 53 U/L (30-110); Aspartate Amino Transferase 26 U/L (14-36); Bilirubin,Total 0.8 mg/dL (0.2-1.3); Lipase 45 U/L (23-300)
== END 2023-05-29 13:08 | disposition home or self-care (01) ==
LOC: ANHLAB 13:09
PROVIDERS: PCP Family Medicine; Visit Provider Surgery
DX: Z01.818 Encounter for other preprocedural examination (principal); K80.20 Calculus of gallbladder without cholecystitis without obstruction
CPT/HCPCS: 36415; 80076; 82150; 83690; 86850; 86900; 86901

== ENCOUNTER 2023-05-30 00:40 | Day surgery (SDC) | payer OTHER, SELFPAY ==
--- NOTE | 2023-05-28 10:08 | SUR.PREOP ---
Report to the Outpatient Waiting Room, entrance under the green pavilion located off [facility], at time 1200 on date 05/30/23. Planned Procedure Time: 1200. Time changes happen often and if your time is changed the preop area will call you the afternoon before. - You and your visitor will be asked to self-screen and do not enter if you have any COVID symptoms. - A mask is optional within the hospital at this time. Patients may have clear liquids (water, carbonated beverages, clear teas, apple juice) until 3 hours prior to surgery with a maximum of 20 ounces. - No food from midnight until time of surgery - Infants may have breast milk until 4 hours before surgery, formula 6 hours prior to surgery. - Children will be allowed to drink immediately following surgery. If applicable, please bring a bottle or sippy cup to assist with drinking. Juice, water, soda, and popsicles are readily available. For infants on formula, please bring formula the day of surgery. Pacifiers are allowed. Take the following medications with a SIP of water the morning of surgery: TYLENOL OR SUMATRIPTAN FOR HEADACHE IF NECESSARY DO NOT STOP ANY OF YOUR OTHER PRESCRIPTION MEDICATIONS PRIOR TO SURGERY ?EXCEPT THE FOLLOWING Medications to discontinue per physician DONT TAKE MULTIVITAMIN AGAIN UNTIL AFTER PROCEDURE Date to take last dose 05/28/23 Please no make-up, nail italian, hairspray, perfume, deodorant, or body powder the day of surgery. No jewelry (including any body piercings) or valuables the day of surgery, leave them at home. Please take a shower or bath the night before, or the morning of, surgery with an antibacterial soap. Wear comfortable, loose fitting clothing. Children are encouraged to wear pajamas. - Jewelry must be removed prior to entering the operating room. Rings and piercings that are not removed may be cut off. - The hospital will not accept responsibility for valuables. - Please leave all valuables, including medications, at home the day of surgery. If you are going home after surgery, a licensed driver salesman must drive you home. - NO public transportation without another adult if you receive anesthesia. - We recommend that an adult stay with you for 24 hours following discharge. - We also recommend that you do not drive, make important decision, drink alcoholic beverages, or take any drugs that were not prescribed by your health care provider for at least 24 hours after your discharge time. For Pediatric surgeries, we recommend two adults accompany the child home. Follow any additional instructions given to you from your surgeon. If you or anyone in your household have experienced Covid symptoms in the past week, please notify your surgeon or the nurse liaison at the phone number below for possible testing. Telephone instructions given to LIBRADO NELSON and asked if any additional questions and then verbalized understanding. Patient advised to call surgeon office or pre surgery nurse liaison [phone] if any additional questions.
[2023-05-28 10:18] VITALS: BMI 35.3
[2023-05-30] VITALS (10 sets, daily range): BP systolic 109–146; BP diastolic 66–95; PULSE 67–95; RESP 12–76; TEMP 36.1–37.3; O2SAT 99–100
[2023-05-30] MEDS: LACTATED RINGERS 1,000 ML 30 ML IV CONT ×2 (12:30→14:30)
[2023-05-30] MEDS: INDOCYANINE GREEN 25 MG VIAL WITH DILUENT 3.75 MG IV PUSH (12:36)
[2023-05-30] MEDS: ACETAMINOPHEN 500 MG TABLET 1000 MG PO (12:42)
--- NOTE | 2023-05-30 12:54 | P.PNAN_ITS ---
Anes - Initial Pre Proc Eval Procedure: Operation Date: 05/30/23 14:00 Proposed Procedures p Laparoscopic Cholecystectomy, Davinci Assisted - Hiram Mercer DO Date/Time: 05/30/23 12:54 Surgeon: Hiram Mercer DO Pre Op Diagnosis: Sym Cholelithiasis Patient Data Age: 22 Gender: F Height: 1.55 m Weight: 84.82 kg Allergies Allergy/AdvReac Type Severity Reaction Status Date / Time amoxicillin Allergy Mild Rash Verified 05/30/23 12:19 Home Medications Medication Instructions Recorded Confirmed Type amitriptyline 25 mg tablet 25 mg PO QHS #60 tabs 02/15/23 05/28/23 Rx sumatriptan succinate 100 mg tablet See Rx Instructions PO .COMPLEX 02/15/23 05/28/23 Rx #20 tabs multivitamin 1 tablet PO DAILY 05/23/23 05/28/23 History Patient hx anesthesia problems: none Family hx anesthesia problems: none Results Review: All pre-operative results and documents have been reviewed as part of the pre- operative evaluation. [facility] Past Medical History Medical History COVID-19 Migraines Normal spontaneous vaginal delivery Pilonidal cyst Family History Family History Grandparent Diabetes mellitus Heart disease Acute myocardial infarction Cerebrovascular accident Sibling Asthma Social History Social History Smoking status: Never smoker Second hand tobacco smoke exposure: No Alcohol intake: current Alcohol use details: 1-6 drinks per month Substance use: never Lack of Transportation: No Lack of Food: Never True Current Housing: I Have Housing Concerned About Future Housing: No Difficulty Paying Gas/Electric Bills: No Difficulty Paying for Meds: No Currently Unemployed: No Education: Associate Degree Difficulty w/ Childcare or Family Care: No Living arrangements: with family Spiritual care concerns: No Anes - Eval Final PreProcedure Day of Procedure 05/30/23 12:54 Patient weight: obese Heart: regular rate and rhythm Lungs: clear to auscultation Airway: Mallampati scale class II Neurological: alert and oriented Last oral intake: >/= 8 hours ASA classification: II Emergent: no Anesthetic plan: proceed Anesthesia type and monitoring: general ETT and standard monitoring Results Review: All pre-operative results and documents have been reviewed as part of the pre- operative evaluation. Informed Consent: The patient's anesthetic plan and its attendant risks and benefits were discussed with the patient/family/POA. Questions were solicited and answers provided to the satisfaction of the patient/family/POA.
--- NOTE | 2023-05-30 12:59 | WPDHPUPDATE1 ---
History and Physical Update Update Date/Time: 05/30/23 12:59 History and Physical has been reviewed, including an updated exam of the patient. There are NO changes in the patient's condition. Risks, benefits, and alternatives have been discussed and questions answered. Patient agrees to proceed with procedure.
[2023-05-30] MEDS: KETOROLAC 15 MG/ML VIAL (*BKC) IV PUSH (13:00)
[2023-05-30] MEDS: SCOPOLAMINE 1.5 MG PATCH TRANSDERM (13:03)
[2023-05-30] MEDS: ceFAZolin 2 GM/D5W 50 ML 2 GM/50 ML BAG IVPB (13:21)
[2023-05-30] MEDS: BUPIVACAINE/EPINEPHRINE 0.5% 50 ML VIAL 30 ML INFILTRATE (14:04)
--- NOTE | 2023-05-30 14:28 | W.PM.PROC2 ---
Procedure Note - Detailed Date of Procedure 05/30/23 Pre-op Diagnosis Symptomatic cholelithiasis Post-op Diagnosis Same Procedure Performed 1. Laparoscopic cholecystectomy with cholangiography, da Cassandra assisted 2. Interpretation of cholangiography Surgeon Hiram Mercer DO Anesthesia General and Local (0.5% bupivacaine) Indications This is a 22-year-old woman who presented with intermittent right upper quadrant pain over the past several months. She had pain with some occasional nausea and vomiting. Her primary care physician obtained an ultrasound which showed evidence of cholelithiasis. Discussions were made with the patient about treatment options and decision was made to proceed with robotic assisted laparoscopic cholecystectomy. Findings Laparoscopic cholecystectomy with cholangiography was performed. 1.5 mL of indocyanine green was given intravenously preop. Near infrared fluorescent imaging was then used to identify the biliary tract intraoperatively. The cystic duct was identified and common bile duct was also able to be identified using the near infrared fluorescent imaging. This allowed me to adequately dissect in a safe location and obtain critical view of safety. The gallbladder had some chronic wall thickening and contained at least 1 gallstone. The gallbladder was removed and sent to the lab for pathology. No other intra-abdominal abnormalities were noted. Description of Procedure Procedure as well as risks, benefits, and alternatives were discussed with the patient. Written consent was obtained and placed in chart prior to procedure. 1.5 mL of indocyanine green was given intravenously in preop. Patient was brought back to surgical suite. She was placed supine on operating table. Time-out was done to confirm patient and procedure. She was then intubated by the anesthesia department. Her abdomen was then prepped and draped in sterile fashion using chlorhexidine prep. 0.5% bupivacaine was infiltrated locally at the site of each port placement. An 8 mm incision was made just superior to the umbilicus and a 5 mm Optiview trocar was then advanced through the abdominal layers under direct visualization. Once inside the abdominal cavity, carbon dioxide insufflation was used to create a pneumoperitoneum. The camera was inserted and the abdomen was inspected. No mediated abnormalities were noted. The patient was placed in 10? reverse Trendelenburg position and rotated 10? to the left. Two 8 mm incisions were made in the right lateral abdomen and 2 8 mm trocars were inserted under direct visualization. A 12 mm incision was made in the left lateral abdomen and a 12 mm trocar was inserted under direct visualization. The 5 mm Optiview trocar was then removed and another 8 mm trocar was inserted in its place. The robotic arms were then brought up to the patient's bedside and secured to each port. The camera and instruments were inserted. I then moved over to the robotic consult to take control of the camera and instruments. The gallbladder was grasped at the fundus and retracted cephalad. The infundibulum of the gallbladder was then grasped and retracted laterally. Hook electrocautery was then used to carefully dissect around the neck of the gallbladder. The cystic duct was identified and a window was created around it using hook electrocautery. The cystic artery was also identified and a window was created behind it using hook electrocautery. Critical view of safety was identified visualizing the cystic duct running directly into the neck of the gallbladder and the cystic artery running directly into the wall the gallbladder. The camera view was switched to firefly mode and the indocyanine green within the gallbladder and cystic duct was clearly visualized. No other structures were noted running into this region and there did not appear to be any obstruction of the cystic duct impeding flow of bile into the gallbladder. The camera mode
== END 2023-05-30 16:30 | disposition home or self-care (01) ==
PROVIDERS: PCP Family Medicine; Visit Provider Surgery
PROC: 0FT44ZZ Resection of Gallbladder, Percutaneous Endoscopic Approach (ICD-10-PCS; CPT 47562; principal; 2023-05-30 14:00)
DX: K80.12 Calculus of gallbladder with acute and chronic cholecystitis without obstruction (principal); E66.9 Obesity, unspecified; Z68.35 Body mass index [BMI] 35.0-35.9, adult
CPT/HCPCS: 47563; 74300; S2900; 36415; 80076; 82150; 83690; 86850; 86900; 86901; 88304; A9270; J0690; J1100; J1885; J2250; J2405; J2704; J3010; J7120

== ENCOUNTER 2023-12-12 15:30 | Outpatient (CLI) | payer OTHER, SELFPAY ==
[2023-12-12 19:31] LABS: Alanine Aminotransferase 18 U/L (6-35); Albumin Level 4.5 g/dL (3.5-5.1); Alkaline Phosphatase 71 U/L (38-126); Anion Gap 7 mmol/L (4-12); Aspartate Amino Transferase 34 U/L (14-36); Bilirubin,Total 0.6 mg/dL (0.2-1.3); Blood Urea Nitrogen 10 mg/dL (7-17); Calcium 9.1 mg/dL (8.4-10.2); Carbon Dioxide 30 mmol/L (22-30); Chloride 104 mmol/L (98-107); Estimated Glomerular Filt Rate > 60; Glucose 95 mg/dL (65-110); Potassium 3.9 mmol/L (3.4-5.0); Sodium 141 mmol/L (137-145)
[2023-12-12 19:32] LABS: Basophils Percent Auto 0.4 % (0.2-1.2); Eosinophils Absolute Auto 0.2 K/mm3 (0-0.3); Eosinophils Percent Auto 2.3 % (0-4.4); Hematocrit 36.7 % (37.0-47.0); Hemoglobin 12.1 g/dL (12.0-15.0); Immature Granulocyte Absolute 0.02 K/mm3 (0.00-0.031); Immature Granulocyte Percent A 0.2 % (0-0.5); Lymphocytes Absolute Auto 2.33 K/mm3 (0.9-3.2); Mean Corpuscular Hemoglobin 29.7 pg (26-34); Mean Platelet Volume 10.2 fl (7.4-10.4); Monocytes Absolute Auto 0.4 K/mm3 (0.1-0.6); Monocytes Percent Auto 4.9 % (2.6-8.5); Neutrophils Absolute Auto 5.9 K/mm3 (1.3-6.7); Neutrophils Percent Auto 66.2 % (45.5-73.1); Platelet Count Result 377 k/mm3 (150-375); Red Blood Count 4.08 M/mm3 (4.2-5.4); Red Cell Distribution Width 12.7 % (11.5-14.5)
[2023-12-14 12:58] LABS: NIL 0.01 IU/mL; Quantiferon TB Plus, 1T NEGATIVE (NEGATIVE); TB1-NIL 0.06 IU/mL; TB2-NIL 0.03 IU/mL
== END 2023-12-12 15:31 | disposition home or self-care (01) ==
LOC: ANHGOSHLAB 15:32
PROVIDERS: PCP Family Medicine; Visit Provider Family Medicine
DX: D64.9 Anemia, unspecified (principal); Z11.1 Encounter for screening for respiratory tuberculosis
CPT/HCPCS: 36415; 80053; 82728; 85025; 86480

== ENCOUNTER 2025-01-30 13:18 | Outpatient (CLI) | payer OTHER, SELFPAY ==
--- OUTSIDE RECORDS SUMMARY | 2025-01-30 13:22 | XMS_ITS | Clinical Summary ---
Author Organization [facility] [employer] Address [address] [place] [address] Care Team Providers Care Enlisted Aircrew/Aerial Observer/Gunner Name Role Phone Unavailable Primary Care Provider Unavailabl e Source Comments [facility],non-owned Affiliates and Associated Physician Practices is amultiple site organization consisting of ambulatory clinics and hospital sitesin [place], [place], [place] and [place]. This disclosure is being madepursuant to the Care Everywhere program and may not contain all information available regarding this patient. Last updated 18.[facility] [employer] Immunizations Immunization Administration Dates Next Due INFLUENZA VACCINE, QUADR. (F LUZONE; FLULAVAL; FLUARIX; AFLURIA QUADRIVALENT; 6MO+), 0.5 ML (IIV4) 06/04/2020 TDAP (7yrs+) 06/04/2020 Social History Tobacco Use Types Packs/Day Years Used Date Smoking Tobacco: Never Assessed Comments Unknown Sex and Gender Information Value Date Recorded Sex Assigned at Not on file Legal Sex Female 10:10 AM [employer]PER[employer] Gender Identity Not on file Sexual Orientation Not on file Plan of Treatment Health Maintenance Due Date Last Done Comments HIV SCREENING 2014 HPV VACCINE (1 - 3-dose series) 2014 CHLAMYDIA/GONORRHEA SCREENING 2015 HEPATITIS C SCREENING 07/16/2017 HEPATITIS B VACCINE (1 of 3 - 19+ 3-dose series) 2018 PAP SMEAR 2020 COVID-19 VACCINE (1 - 2023-2 5 season) 2024 DEPRESSION SCREENING 06/18/2024 INFLUENZA VACCINE (#1) 2025 06/04/2020 DTAP/TDAP/TD VACCINES (2 - T d or Tdap) 06/04/2030 06/04/2020 ZOSTER VACCINE (1 of 2) 2049 HIB VACCINE Aged Out No longer eligi ble based on patient's age to complete this topic MENINGOCOCCAL (Group B) VACC INE SHARED DECISION-MAKING Aged Out No longer eligibl e based on patient's age to complete this topic MENINGOCOCCAL GROUPS A/C/Y/W VACCINE Aged Out No longer eligible b ased on patient's age to complete this topic PNEUMOCOCCAL VACCINE Aged Out No long er eligible based on patient's age to complete this topic Insurance [employer] [facility] Address: [facility] [id number] [place] [id number] [employer] SELF PAY NO INSURANCE Member Subscriber Plan / Payer (Ef fective for All Dates) Name:Chyna Veloz Member ID:Not on file Relation to Subscriber:Not on file Name:CHYNA VELOZ Subscriber ID:Not on file Address: [address] [address] Payer ID:Not on file Group ID:Not on file Type:Self Pay Address: [place], [place] [employer] SELF PAY NO INSURANCE Member Subscriber Plan / Payer (Ef fective for All Dates) Name:Chyna Veloz Member ID:Not on file Relation to Subscriber:Not on file Name:CHYNA VELOZ Subscriber ID:Not on file Address: [address] [address] Payer ID:Not on file Group ID:Not on file Type:Self Pay Address: [place], [place]
--- OUTSIDE RECORDS SUMMARY | 2025-01-30 13:22 | XMS_ITS | Clinical Summary ---
Author Organization [facility] Address [address] [place] [id number] Care Team Providers Care Poultry Cleaner Name Role Phone Renetta [place] MD Primary Care Provider [phone] Renetta [place] MD Unavailable [phone] Allergies Active Allergy Reactions Criticality Noted Date Comments Amoxicillin Rash Medium 06/10/2021 Medications No known medications Active Problems No known active problems Family History Medical History Relation Name Comments No Known Problems Father No Known Problems Mother Relation Name Status Comments Father Alive Mother Alive Social History Tobacco Use Types Packs/Day Years Used Date Smoking Tobacco: Never Smokeless Tobacco: Never AUDIT-C Answer Date Recorded Q1: How often do you have a drink containing alc ohol? 2-4 times a month 06/10/2021 Average Number of Drinks Not on file 021 Frequency of Binge Drinking Not on file 05/19 Personal Safety Answer Date Recorded Getting School Help Needed Not on file 07/22 Comments Unknown Sex and Gender Information Value Date Recorded Sex Assigned at Not on file Legal Sex Female 10:32 AM CDT Gender Identity Not on file Sexual Orientation Not on file Obstetrics History Last Filed Vital Signs Vital Sign Reading Time Taken Comments Blood Pressure 112/72 06/10/2021 9:49 AM [employer] HOU[employer]PERATOR Pulse 84 06/10/2021 9:49 AM [employer] HOU[employer] OPER[employer] Temperature 36.8 C (98.3 F) 06/10/2021 9:49 AM [employer] HOUSE OPERATOR Respiratory Rate 14 06/10/2021 9:49 AM [employer] HOUSE OPERATOR Oxygen Saturation 98% 06/10/2021 9:49 AM [employer]ANK HOUSE OPERATOR Inhaled Oxygen Concentration - - Weight 84.1 kg (185 lb 4.8 oz) 06/10/2021 9:49 A M [employer] HOUSE OPER[employer] Height 154.9 cm (5' 1) 06/10/2021 9:49 AM TANK HOUSE OPERATOR Body Mass Index 35.01 06/10/2021 9:49 AM TANK HOUSE OPERATOR Plan of Treatment Not on file Insurance [facility] H[facility]/PPO Address: [address] [phone] Care Teams Poultry Cleaner Relationship Specialty Start Date End Date Renetta Woodson MD [address] [place] [address] PCP - General 04/27/17 Renetta Woodson MD [address] [place] [address] 04/27/17
[2025-01-30 18:36] LABS: Hematocrit 38.3 % (37.0-47.0); Hemoglobin 12.2 g/dL (12.0-15.0); Immature Granulocyte Percent A 0.3 % (0-0.5); Lymphocytes Absolute Auto 1.99 K/mm3 (0.9-3.2); Mean Corpuscular HGB Conc 31.9 g/dl (32-36); Mean Corpuscular Hemoglobin 28.6 pg (26-34); Mean Corpuscular Volume 89.9 fl (80-100); Nucleated Red Blood Cells Absolute Auto 0.000 K/mm3 (0.0-0.012); Nucleated Red Blood Cells Perc 0.0 % (0.0-0.2); Platelet Count Result 417 k/mm3 (150-375); Red Blood Count 4.26 M/mm3 (4.2-5.4); White Blood Count 6.4 K/mm3 (4.5-10.0)
[2025-01-30 18:54] LABS: Alanine Aminotransferase 19 U/L (6-35); Albumin Level 4.3 g/dL (3.5-5.1); Alkaline Phosphatase 75 U/L (38-126); Anion Gap 7 mmol/L (4-12); Aspartate Amino Transferase 43 U/L (14-36); Bilirubin,Total 0.5 mg/dL (0.2-1.3); Blood Urea Nitrogen 9 mg/dL (7-17); Calcium 9.7 mg/dL (8.4-10.2); Carbon Dioxide 28 mmol/L (22-30); Chloride 103 mmol/L (98-107); Cholesterol 160 mg/dL (0-200); Estimated Glomerular Filt Rate > 60; Glucose 91 mg/dL (65-110); HDL Direct 39 mg/dL; Potassium 4.5 mmol/L (3.4-5.0); Sodium 138 mmol/L (137-145); Total Protein 7.9 g/dL (6.3-8.2); Triglycerides 58 mg/dL (<150)
[2025-01-30 19:26] LABS: Thyroid Stimulating Hormone 0.982 uIU/mL (0.465-4.680)
[2025-01-30 20:17] LABS: Hemoglobin A1C 5.2 % (<5.7)
== END 2025-01-30 13:19 | disposition home or self-care (01) ==
LOC: ANHGOSHLAB 13:18
PROVIDERS: PCP Family Medicine; Visit Provider Student in an Organized Health Care Education/Training Program
DX: Z13.29 Encounter for screening for other suspected endocrine disorder (principal); Z13.0 Encounter for screening for diseases of the blood and blood-forming organs and certain disorders involving the immune mechanism; E66.9 Obesity, unspecified; Z13.220 Encounter for screening for lipoid disorders
CPT/HCPCS: 36415; 80053; 80061; 83036; 84443; 85025